=== PATIENT | female | born 1970 | race African-American/Black ===

== ENCOUNTER 2020-07-18 11:47 | Inpatient (IN) ==
[2020-07-18 12:56] LABS: Alanine Aminotransferase 15 U/L (13-56); Albumin 2.9 G/DL (3.4-5.0); Alkaline Phosphatase 80 U/L (45-117); Aspartate Amino Transferase 26 U/L (0-37); Blood Urea Nitrogen 9 MG/DL (7-18); Calcium 9.3 MG/DL (8.5-10.1); Estimated Glom Filtration Rate 120 ML/MIN; Glucose 346 MG/DL (74-106); Osmolality,Calculated 278.4 MOS/KG (273-304); Total Protein 7.9 G/DL (6.4-8.3); Troponin I < 0.015 NG/ML (0.00-0.045)
[2020-07-18 13:11] LABS: Basophils % 0.1 % (0.0-0.8); Eosinophils % 0.1 % (0.00-10.9); Hematocrit 36.8 VOL% (35.7-47.0); Hemoglobin 10.9 GM/DL (12.0-16.0); Immature Granulocytes % 0.3 %; Immature Granulocytes Absolute 0.02 #; Lymphocytes # 0.7 10*3/uL (1.4-4.0); Lymphocytes % 9.6 % (21.3-54.2); Mean Corpuscular HGB Conc 29.6 GM/DL (32-36); Mean Corpuscular Volume 70.9 FL (87-102); Monocytes % 4.3 % (1.7-12.7); Neutrophils % 85.6 % (38.7-73.9); Platelet Count 275 T/CUMM (130-400); Red Blood Count 5.19 MC/CUMM (3.8-5.5); Red Cell Distribution Width 15.5 % (9.3-17.3); White Blood Count 7.5 T/CUMM (4-12)
[2020-07-18 13:17] LABS: PT Patient Result 10.8 SECS (9.8-11.9)
[2020-07-18] MEDS ORDERED: LEVOFLOXACIN INJ 750 MG in PREMIX 1 EACH IV STA (14:52)
[2020-07-18] MEDS ORDERED: SODIUM CHLORIDE 0.9% 1,000 ML IV STA (14:53)
[2020-07-18] MEDS ORDERED: hydrALAZINE 20 MG/1 ML VIAL IV STA (15:09)
[2020-07-18] MEDS ORDERED: hydrALAZINE 20 MG/1 ML VIAL IV PRN (15:09)
[2020-07-18] MEDS ORDERED: GLUCAGON 1 MG VIAL IM PRN (15:38)
[2020-07-18] MEDS ORDERED: DEXTROSE 50% 25 GM/50 ML VIAL IV PRN (15:38)
[2020-07-18] MEDS ORDERED: diphenhydrAMINE CAP 25 MG CAPSULE PO PRN (15:38)
[2020-07-18] MEDS ORDERED: ACETAMINOPHEN 325 MG TABLET PO PRN (15:38)
[2020-07-18] MEDS ORDERED: ONDANSETRON 4 MG/2 ML VIAL IV PRN (15:38)
[2020-07-18] MEDS ORDERED: DOCUSATE SODIUM 100 MG CAPSULE PO PRN (15:38)
[2020-07-18] MEDS ORDERED: LABETALOL 20 MG/4 ML SYRINGE IV STA (15:41)
[2020-07-18] MEDS ORDERED: traZODone 50 MG TABLET PO PRN (15:43)
[2020-07-18] MEDS ORDERED: NON-FORMULARY MEDICATION (Albuterol Sulfate [Ventolin Hfa] 2 PUFF) INH PRN (15:43)
[2020-07-18] MEDS ORDERED: CETIRIZINE 10 MG TABLET PO STA (15:49)
[2020-07-18] MEDS ORDERED: AZITHROMYCIN INJ 500 MG in SODIUM CHLORIDE 0.9% 250 ML IV SCH (16:00)
[2020-07-18] MEDS ORDERED: cefTRIAXone 1,000 MG in SODIUM CHLORIDE 0.9% 100 ML IV SCH (16:00)
[2020-07-18] MEDS ORDERED: DEXAMETHASONE INJ 10 MG in SODIUM CHLORIDE 0.9% 50 ML IV SCH (16:00)
[2020-07-18] MEDS: ENOXAPARIN 60 MG/0.6 ML SYRINGE SUBCUT SCH (17:25)
[2020-07-18] MEDS: DEXAMETHASONE 10 MG/1 ML VIAL IV SCH (17:47)
[2020-07-18] MEDS: INSULIN LISPRO 100 UNIT/ML SUBCUT SCH ×2 (18:17→22:25)
[2020-07-18] MEDS: carvediloL 12.5 MG TABLET PO SCH (21:34)
[2020-07-18] MEDS: ASCORBIC ACID 500 MG TABLET PO SCH (21:34)
[2020-07-18] MEDS: ZINC SULFATE 220 MG CAPSULE PO SCH (21:34)
[2020-07-18] MEDS: DICLOFENAC 1% GEL 100 GM TUBE TOP SCH ×2 (21:34)
[2020-07-19 05:12] LABS: Hematocrit 41.2 VOL% (35.7-47.0); Immature Granulocytes % 0.4 %; Immature Granulocytes Absolute 0.02 #; Lymphocytes # 0.6 10*3/uL (1.4-4.0); Lymphocytes % 11.1 % (21.3-54.2); Mean Corpuscular HGB Conc 29.1 GM/DL (32-36); Mean Corpuscular Volume 72.7 FL (87-102); Mean Platelet Volume 10.9 FL (9.6-12.0); Neutrophils % 86.5 % (38.7-73.9); Platelet Count 317 T/CUMM (130-400); Red Blood Count 5.67 MC/CUMM (3.8-5.5); Red Cell Distribution Width 15.7 % (9.3-17.3)
[2020-07-19 05:22] LABS: Bilirubin,Total 0.4 MG/DL (0.2-1.0); Calcium 9.4 MG/DL (8.5-10.1); Osmolality,Calculated 273.5 MOS/KG (273-304); Total Protein 7.7 G/DL (6.4-8.3)
[2020-07-19] MEDS: ENOXAPARIN 60 MG/0.6 ML SYRINGE SUBCUT SCH ×2 (05:54→17:41)
[2020-07-19] MEDS: INSULIN LISPRO 100 UNIT/ML SUBCUT SCH ×5 (06:30→21:10)
[2020-07-19 06:36] LABS: Hypochromasia 1+; Lymphocytes 7 % (20-55); Microcytosis 1+; Ovalocytes Few; Platelet Estimate Normal; Segmented Neutrophils 92 % (50-85); Total Cells Counted 100
[2020-07-19] MEDS: ZINC SULFATE 220 MG CAPSULE PO SCH (08:28)
[2020-07-19] MEDS: ASCORBIC ACID 500 MG TABLET PO SCH ×2 (08:28→21:10)
[2020-07-19] MEDS: DEXAMETHASONE 10 MG/1 ML VIAL IV SCH (08:28)
[2020-07-19] MEDS: PANTOPRAZOLE 40 MG TABLET PO SCH (08:28)
[2020-07-19] MEDS: carvediloL 12.5 MG TABLET PO SCH ×2 (08:29→21:10)
[2020-07-19] MEDS: DICLOFENAC 1% GEL 100 GM TUBE TOP SCH ×2 (10:10→21:10)
[2020-07-19] MEDS: INSULIN GLARGINE 100 UNIT/ML SUBCUT SCH (14:42)
[2020-07-19] MEDS ORDERED: REMDESIVIR 200 MG in SODIUM CHLORIDE 0.9% 210 ML IV ONE (17:00)
[2020-07-20] MEDS: ENOXAPARIN 60 MG/0.6 ML SYRINGE SUBCUT SCH ×2 (04:03→16:20)
[2020-07-20 06:32] LABS: Calcium 9.4 MG/DL (8.5-10.1)
[2020-07-20 06:51] LABS: Hematocrit 37.1 VOL% (35.7-47.0); Immature Granulocytes % 0.6 %; Immature Granulocytes Absolute 0.04 #; Lymphocytes # 0.7 10*3/uL (1.4-4.0); Lymphocytes % 10.6 % (21.3-54.2); Mean Corpuscular HGB Conc 29.1 GM/DL (32-36); Mean Corpuscular Volume 71.5 FL (87-102); Mean Platelet Volume 11.1 FL (9.6-12.0); Monocytes % 7.1 % (1.7-12.7); Neutrophils % 81.7 % (38.7-73.9); Platelet Count 316 T/CUMM (130-400); Red Blood Count 5.19 MC/CUMM (3.8-5.5); Red Cell Distribution Width 15.6 % (9.3-17.3); White Blood Count 6.2 T/CUMM (4-12)
[2020-07-20 06:52] LABS: Hemoglobin 10.8 GM/DL (12.0-16.0)
[2020-07-20 07:24] LABS: Hypochromasia 1+; Lymphocytes 4 % (20-55); Platelet Estimate Adequate; Segmented Neutrophils 90 % (50-85); Total Cells Counted 100
[2020-07-20 07:25] LABS: Burr Cells Slight; Microcytosis 1+
[2020-07-20] MEDS: ASCORBIC ACID 500 MG TABLET PO SCH (09:34)
[2020-07-20] MEDS: carvediloL 12.5 MG TABLET PO SCH (09:34)
[2020-07-20] MEDS: PANTOPRAZOLE 40 MG TABLET PO SCH (09:34)
[2020-07-20] MEDS: ZINC SULFATE 220 MG CAPSULE PO SCH (09:34)
[2020-07-20] MEDS: INSULIN LISPRO 100 UNIT/ML SUBCUT SCH ×2 (09:34→12:11)
[2020-07-20] MEDS: INSULIN GLARGINE 100 UNIT/ML SUBCUT SCH (09:34)
[2020-07-20] MEDS: DEXAMETHASONE 10 MG/1 ML VIAL IV SCH (09:34)
[2020-07-20] MEDS: DICLOFENAC 1% GEL 100 GM TUBE TOP SCH (09:50)
[2020-07-20 11:57] VITALS: BP 160/77
[2020-07-20] MEDS ORDERED: SODIUM CHLORIDE 0.9% 1,000 ML IV PRN (12:55)
[2020-07-20] MEDS: ALBUTEROL INHALER 18 GM INH SCH ×2 (13:24→15:13)
[2020-07-20] MEDS ORDERED: REMDESIVIR 100 MG in SODIUM CHLORIDE 0.9% 230 ML IV SCH (17:00)
== END 2020-07-20 16:10 | disposition home or self-care (01) | DRG 177 ==
LOC: N.ED 11:47 → N.EDINP 15:38 → N.2E 07-19 07:31
PROVIDERS: ADMIT Internal Medicine; ATTEND Internal Medicine